=== PATIENT | female | born 1965 | race Hispanic/Latino ===

== ENCOUNTER → 2017-07-19 | Outpatient (CLI) | payer BC ==
[~2017-07-19] MED LIST: GADOBUTROL 10 MMOL/10 ML VIAL IV ONE; LORAZEPAM INJ 2 MG/ML VIAL ONE; PRAVASTATIN SOD20 MG PO; SERTRALINE HCL100 MG PO; SODIUM CHLORIDE 0.9% 50ML 50 ML ONE
--- NOTE | 2017-07-20 07:46 | Diagnostic Imaging Report ---
History: Follow-up pituitary surgery 05/11/2017 Comparison studies: MRI brain 05/03/2017 Technique: Pre-and post coronal and sagittal T1. Coronal T2. Axial DWI through the brain. Dynamic postcontrast coronal through the sella Intravenous contrast: 6.4 cc of Gadavist. Findings: Sella: Residual expansion of the sella turcica Pituitary gland: More than 80% resection of the previously visualized sellar and suprasellar mass. Residual enhancing soft tissues at the right aspect of the sella with extension to the ipsilateral cavernous sinus measuring 1.8 x 1.7 x 5 cm (SI-AP-Trans). The suprasellar component has been completely removed, with improved mass effect over the optic chiasm and hypothalamic structures. Pituitary stalk: Deviated towards the left. Optic chiasm: Well visualized and mildly thinned. No mass effect or superior displacement. Cavernous sinuses: Normal appearance of the left cavernous sinus. 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 Sphenoid sinuses: Changes of transsphenoidal sinus surgery with occupation of the sphenoid sinus cavity by T1 and T2 hyperintense material. Mucosal thickening of the ethmoid air cells. There are no abnormalities in the visualized sections through the brain. IMPRESSION: 1. 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 2. Resolved mass effect over the optic chiasm and hypothalamic structures. 3. Transsphenoidal surgery changes Signed by: DR Solitario Blackman M.D. on 07/20/2017 7:42 AM
== END ==
LOC: MRI 07-05 09:24
PROVIDERS: ATTEND Neurological Surgery
DX: D35.2 Benign neoplasm of pituitary gland (principal)
CPT/HCPCS: 70553; A9585 ×2; J2060

== ENCOUNTER → 2018-01-19 | Outpatient (CLI) | payer BC ==
[~2018-01-19] MED LIST changes: +GADOBENATE DIMEGLUMINE 1 ML IV ONE; -GADOBUTROL 10 MMOL/10 ML VIAL IV ONE
--- NOTE | 2018-01-19 16:50 | Diagnostic Imaging Report ---
History: Strange smell Comparison studies: MRI of the sella on 07/19/17 and 05/03/2017. Technique: Pre-contrast: Sagittal T2; axial T1-IR, SWI, DWI, T2 FLAIR Post-contrast: Axial, coronal and sagittal T1. Intravenous contrast: 12 cc of Gadavist. Findings: Sella: Mildly enlarged, partially empty and distorted. Postsurgical changes from a previous transsphenoidal surgery are seen on the left. Pituitary gland: A residual 1.0 x 1.7 x 1.0 cm (SI-AP-Trans) enhancing mass in the right aspect of the pituitary continues to abut the cavernous and supraclinoid segments of the right ICA but does not extend into the cavernous sinus. Posterior pituitary: Not visualized Pituitary stalk: Nonvisualized Mildly atrophic but normal in size Cavernous sinuses: Normal in size and symmetric. Internal carotid arteries: Normal flow void appearance. Sphenoid sinuses: Chronic inflammatory changes on the right. Relatively clear on the left There are no abnormalities in the visualized sections through the brain. IMPRESSION: 1. No changes when compared to the MRI of the sella on 07/19/2017. 2. Patient status post transsphenoidal surgery and partial resection of the pituitary microadenoma initially described on 05/03/2017. Residual 1.0 x 1.7 x 1.0 cm (SI-AP-Trans), is once again seen in the right aspect of the sella. It abuts but does not compress the right ICA and does not extend into the cavernous sinus. 3. Otherwise, no significant abnormalities. Signed by: Dr. Uli Gregorio M.D. on 01/19/2018 4:47 PM
== END ==
LOC: MRI 14:25
PROVIDERS: ATTEND Otolaryngology
DX: E23.7 Disorder of pituitary gland, unspecified (principal)
CPT/HCPCS: 70553; J2060